=== PATIENT | male | born 1960 | race American Indian/Alaskan Native ===

== ENCOUNTER 2017-02-16 00:06 | Emergency (ER) | payer MEDICAID ==
[2017-02-16 00:07] VITALS: BMI 25.8
[2017-02-16] MEDS ORDERED: DiphenhydrAMINE 50 mg/ml Inj IM STA (00:38)
[2017-02-16] MEDS ORDERED: DiphenhydrAMINE 50 mg/ml Inj ONE (00:41)
--- NOTE | 2017-02-16 00:41 | C.PDOC ---
History Of Present Illness Patient is a 56 year old male who presents to the ER with a complaint of itchiness. Patient states he believe it is caused due to bedbugs. Denies swelling or shortness of breath. Chief Complaint (Nursing): Abnormal Skin Integrity History Per: Patient History/Exam Limitations: no limitations Onset/Duration Of Symptoms: Hrs Current Symptoms Are (Timing): Still Present Quality Of Symptoms: Itching Past Medical History Reviewed: Historical Data, Nursing Documentation, Vital Signs Vital Signs: Last Vital Signs Temp 99.7 F H 02/16/17 00:33 Pulse 78 02/16/17 00:33 Resp 18 02/16/17 00:33 BP 146/86 02/16/17 00:33 Pulse Ox 97 02/16/17 00:44 - Medical History PMH: Back Problems Surgical History: CABG Family History: States: Unknown Family Hx - Social History Hx Tobacco Use: No Hx Alcohol Use: No Hx Substance Use: No - Immunization History Hx Tetanus Toxoid Vaccination: No Hx Influenza Vaccination: No Hx Pneumococcal Vaccination: No Review Of Systems Constitutional: Negative for: Fever, Chills ENT: Negative for: Throat Swelling Skin: Positive for: Other (Itchiness) Physical Exam - Physical Exam Appears: Well, Non-toxic, No Acute Distress, Other (Complaining of itchiness) Skin: Warm, Dry, Other (Irritation to both elbows, proximal forearm, and inner thigh proximal and lateral.) Head: Atraumatic, Normacephalic Oral Mucosa: Moist Chest: Symmetrical, No Tenderness Cardiovascular: Rhythm Regular, No Murmur Respiratory: Normal Breath Sounds, No Rales, No Rhonchi, No Wheezing Gastrointestinal/Abdominal: Soft, No Tenderness Neurological/Psych: Oriented x3, Normal Speech, Normal Cognition ED Course And Treatment O2 Sat by Pulse Oximetry: 97 (Room air) Pulse Ox Interpretation: Normal Progress Note: Benadryl IM administered. Disposition - Disposition Referrals: Non [facility] Provider, [Primary Care Provider] - [facility] [Outside] Disposition: HOME/ ROUTINE Disposition Time: 23:45 Condition: STABLE Prescriptions: DiphenhydrAMINE [Benadryl] 25 mg PO Q6 #20 cap Gly/Dimeth/Petrolat,Wht/Water [Aveeno Intense Relief Cream] 207 gm TP BID #1 cream..g. Nystatin/Triamcinolone Acetoni [Mycolog II] 1 applic TOP BID #1 tube Instructions: Contact Dermatitis (ED) - POA Present On Arrival: None - Clinical Impression Clinical Impression: Skin irritation, Contact dermatitis and eczema - Scribe Statement The provider has reviewed the documentation as recorded by the Scribmeek Delgado All medical record entries made by the Scribe were at my direction and personally dictated by me. I have reviewed the chart and agree that the record accurately reflects my personal performance of the history, physical exam, medical decision making, and the department course for this patient. I have also personally directed, reviewed, and agree with the discharge instructions and disposition.
[2017-02-16 01:04] VITALS: BP 139/82; PULSE 72; RESP 16; TEMP 98.6; O2SAT 98
== END 2017-02-16 01:19 | disposition home or self-care (01) ==
LOC: SUPCPDRO 00:06 → C.ER 00:06
DX: L25.9 Unspecified contact dermatitis, unspecified cause (principal)
CPT/HCPCS: 96372; 99284; J1200

== ENCOUNTER 2017-07-05 11:19 | Emergency (ER) | payer MEDICAID ==
[2017-07-05 11:19] VITALS: BMI 25.8
--- NOTE | 2017-07-05 13:33 | C.PDOC ---
History Of Present Illness 56 y/o male presents to the ED for evaluation of chest pain and back pain which began this morning. Patient states he woke up asymptomatic, looked outside of his window to check the weather, and saw a squirrel on his fire escape. Patient threw his arms back in surprise and began developing chest and back pain. Patient only reports back pain in the ED. He denies shortness of breath, arm pain, nausea, vomiting, extremity numbness/weakness. Time Seen by Provider: 07/05/17 12:53 Chief Complaint (Nursing): Medical Clearance History Per: Patient History/Exam Limitations: no limitations Onset/Duration Of Symptoms: Hrs Current Symptoms Are (Timing): Better Additional History Per: Patient Past Medical History Reviewed: Historical Data, Nursing Documentation, Vital Signs Vital Signs: Last Vital Signs Temp 98.0 F 07/05/17 15:13 Pulse 60 07/05/17 15:13 Resp 16 07/05/17 15:13 BP 126/69 07/05/17 15:13 Pulse Ox 97 07/05/17 15:13 - Medical History PMH: Back Problems Surgical History: No Surg Hx Family History: States: Unknown Family Hx - Social History Hx Tobacco Use: No Hx Alcohol Use: No Hx Substance Use: No - Immunization History Hx Tetanus Toxoid Vaccination: No Hx Influenza Vaccination: No Hx Pneumococcal Vaccination: No Review Of Systems Cardiovascular: Negative for: Chest Pain Respiratory: Negative for: Shortness of Breath Gastrointestinal: Negative for: Nausea, Vomiting Musculoskeletal: Positive for: Back Pain. Negative for: Arm Pain Neurological: Negative for: Weakness, Numbness Physical Exam - Physical Exam Neck: Midline Cervical Tenderness Additional Physical Exam Comments: Constitutional: No acute distress. Head: Normocephalic. Atraumatic. Eyes: PERRL. EOMI ENT: Moist mucous membranes. Neck: Supple. no midline cervical tenderness Cardiovascular: Regular rate and rhythm. No murmur. Chest: No tenderness. Respiratory: Clear to auscultation bilaterally. No wheezing, rhonchi, or rales. GI: Soft. Nontender. Nondistended. Normoactive bowel sounds. Back: No CVA tenderness. Mild tenderness to bilateral mid-thoracic region on palpation. no vertebral tendernwess Musculoskeletal: No swelling of extremities. No calf tenderness. from all extremities, +2 radial pulses b/l Skin: No rash. Neurologic: A & O x 3, ms 5/5 x 4, sensation intact ED Course And Treatment ECG: Interpreted By Me, Viewed By Me ECG Rhythm: Sinus Rhythm Interpretation Of ECG: Normal Sinus Rhythm rate 80bpm. Possible left atrial enlargement. Rate From EC Medical Decision Making Medical Decision Making: Impression: 56 y/o male with back pain Plan: * Motrin PO * reassess and disposition Progress: Patient received Motrin PO. 300 pm pt asymptomatic, will d/c home. Disposition Counseled Patient/Family Regarding: Studies Performed, Diagnosis - Disposition Referrals: Khanh Olson Jr., MD [Staff Provider] - Disposition: HOME/ ROUTINE Disposition Time: 15:07 Condition: STABLE Additional Instructions: Follow up with your pmd tomorrow, Return to ER for any worse symptoms. Avoid surprising situations if possible. Instructions: Back Pain (ED) Forms: [facility] (Urdu), General Discharge Instructions - Clinical Impression Clinical Impression: Upper back pain - PA / DESIGN MAINTENANCE ENGINEER / Resident Statement MD/DO has reviewed & agrees with the documentation as recorded. - Scribe Statement The provider has reviewed the documentation as recorded by the Scribe (Elba Huynh) All medical record entries made by the Scribe were at my direction and personally dictated by me. I have reviewed the chart and agree that the record accurately reflects my personal performance of the history, physical exam, medical decision making, and the department course for this patient. I have also personally directed, reviewed, and agree with the discharge instructions and disposition.
[2017-07-05 14:02] VITALS: PULSE 60; O2SAT 97
[2017-07-05 15:13] VITALS: BP 126/69; RESP 16; TEMP 98
--- NOTE | 2017-07-08 10:24 | CARD ---
APPROVED REPORT EKG Measurement Heart [id number] <Conclusion> Normal sinus rhythm Possible Left atrial enlargement Borderline ECG
== END 2017-07-05 15:17 | disposition home or self-care (01) ==
LOC: C.ER 11:19
DX: M54.89 Other dorsalgia (principal)

== ENCOUNTER 2018-04-15 06:30 | Emergency (ER) | payer MEDICAID ==
[2018-04-15 06:31] VITALS: BMI 25.8
--- NOTE | 2018-04-15 07:38 | C.PDOC ---
History Of Present Illness 57 yo male w/o significant PMHx come in for evaluation of painful mass developed over Right groin for past few days. Pt sts, pain is localized over right groin area. Pt also request evaluation of B/L arms and B/L thighs rash, itchy developed for past few days. Otherwise, pt denies fever, chills, throat swelling or tightness, cough, CP, SOB, dyspnea, palpitation, abd. pain, N/V/D, back pain, UTI sx. Ambulate to ED for evaluation, not in any apparent distress. Time Seen by Provider: 04/15/18 07:26 Chief Complaint (Nursing): Abdominal Pain History Per: Patient Past Medical History Reviewed: Historical Data, Nursing Documentation, Vital Signs Vital Signs: Last Vital Signs Temp 98.4 F 04/15/18 07:55 Pulse 61 04/15/18 07:55 Resp 20 04/15/18 07:55 BP 116/73 04/15/18 07:55 Pulse Ox 98 04/15/18 07:55 - Medical History PMH: Back Problems Denies: Chronic Kidney Disease Surgical History: Denies: CABG Family History: States: Unknown Family Hx - Social History Hx Tobacco Use: No Hx Alcohol Use: No Hx Substance Use: No - Immunization History Hx Tetanus Toxoid Vaccination: No Hx Influenza Vaccination: No Hx Pneumococcal Vaccination: No Review Of Systems Except As Marked, All Systems Reviewed And Found Negative. Constitutional: Negative for: Fever, Chills Eyes: Negative for: Vision Change ENT: Negative for: Ear Discharge, Nose Discharge, Throat Pain, Throat Swelling Cardiovascular: Negative for: Chest Pain, Palpitations, Edema, Light Headedness Respiratory: Negative for: Cough, Shortness of Breath Gastrointestinal: Negative for: Nausea, Vomiting, Abdominal Pain, Diarrhea Genitourinary: Negative for: Dysuria, Frequency, Incontinence Musculoskeletal: Negative for: Neck Pain, Back Pain Skin: Positive for: Rash, Lesions Neurological: Negative for: Weakness, Numbness, Headache, Dizziness Physical Exam - Physical Exam Appears: Well, Non-toxic, No Acute Distress Skin: Normal Color, Warm, Dry, Rash (multiple vesicular rash to B/L inner thighs. B/L axillar area. No erythema, no flactualnce.), Other ((+) Right groin tender mass 2cm diameter, erythematous with mild middle induration. NO discahrges, no flactulance.) Head: Normacephalic Eye(s): bilateral: PERRL Nose: No Flaring, No Discharge Oral Mucosa: Moist, No Drooling Tongue: Normal Appearing, No Swelling Lips: No Swelling Throat: No Erythema, No Drooling Neck: Normal ROM, No Midline Cervical Tenderness, No Paracervical Tenderness, No Step Off Deformity, Supple Cardiovascular: Rhythm Regular, No Murmur Respiratory: No Decreased Breath Sounds, No Accessory Muscle Use, No Stridor, No Wheezing Gastrointestinal/Abdominal: Soft, No Tenderness, No Distention, No Guarding, No Rebound, No Hernia Extremity: Normal ROM, No Deformity, No Swelling Neurological/Psych: Oriented x3, Normal Speech ED Course And Treatment O2 Sat by Pulse Oximetry: 97 Pulse Ox Interpretation: Normal Progress Note: On re-evaluation, pt is afebrile, hemodynamicaly stable. NOn- toxic. Ambulatory in ED with stable gait. ENT: No acute findings. Uvula midline, no edema. Lungs: CTA B/L, BS equal B/L. CVS: (+)S1S2, reg. ABd: benign, (-) guarding, (-) rebound, (-) evidence of hernia. Back: (-) CVA tenderness. Pt has clinical findings c/w Right gorin furuncle, rash, nos. Pt advised. ref. to F/u with PMD in 2-3 days for re-eavl. return to ED if any worsening or new changes. Disposition Counseled Patient/Family Regarding: Diagnosis, Need For Followup, Rx Given - Disposition Referrals: [facility] [Outside] Disposition: HOME/ ROUTINE Disposition Time: 07:37 Condition: STABLE Additional Instructions: Take medication as prescribed Warm salty compresses to area of pain and swelling Keep skin dry, avoid tight cloth Follow up with PMD, Dermatology in 2-3 days for re-evaluation. return if any new changes. Prescriptions: DiphenhydrAMINE [Benadryl] 25 mg PO BID #14 cap Doxycycline Hyclate [Doryx] 100 mg PO BID #20 cap Instructions: Folliculitis (DC) Forms: [employer] (Hong Konger) - Clinical Impression Clinical Impression: Folliculitis
[2018-04-15 08:32] VITALS: BP 116/73; PULSE 61; RESP 20; TEMP 98.4
[2018-04-15 16:29] VITALS: O2SAT 97
== END 2018-04-15 07:55 | disposition home or self-care (01) ==
LOC: C.ER 06:30
DX: L73.9 Follicular disorder, unspecified (principal)

== ENCOUNTER 2018-04-22 15:33 | Emergency (ER) | payer MEDICAID ==
[2018-04-22 15:33] VITALS: BMI 25.8
[2018-04-22 15:51] VITALS: BP 124/77; TEMP 97.8; O2SAT 98
[2018-04-22 16:35] VITALS: PULSE 56
--- NOTE | 2018-04-22 16:35 | C.PDOC ---
History Of Present Illness 57 y/o male presents to ED with c/o reproducible chest pain for 1 day. Patient has multiple ED visits for chest pain and anxiety, denies injury, heavy lifting , sob, cough or any other complaints at this time. Time Seen by Provider: 04/22/18 16:26 Chief Complaint (Nursing): Chest Pain History Per: Patient History/Exam Limitations: no limitations Onset/Duration Of Symptoms: Days Current Symptoms Are (Timing): Still Present Past Medical History Reviewed: Historical Data, Nursing Documentation, Vital Signs Vital Signs: Last Vital Signs Temp 97.8 F 04/22/18 15:49 Pulse 56 L 04/22/18 16:15 Resp 18 04/22/18 17:26 BP 124/77 04/22/18 15:49 Pulse Ox 98 04/22/18 16:34 - Medical History PMH: Back Problems Surgical History: No Surg Hx Family History: States: No Known Family Hx - Social History Hx Tobacco Use: No Hx Alcohol Use: No Hx Substance Use: No - Immunization History Hx Tetanus Toxoid Vaccination: No Hx Influenza Vaccination: No Hx Pneumococcal Vaccination: No Review Of Systems Constitutional: Negative for: Fever, Chills Cardiovascular: Positive for: Chest Pain Respiratory: Negative for: Cough, Shortness of Breath Gastrointestinal: Negative for: Nausea, Vomiting Skin: Negative for: Rash Physical Exam - Physical Exam Appears: Non-toxic, No Acute Distress Skin: Warm, Dry, No Rash Head: Atraumatic, Normacephalic Eye(s): bilateral: Normal Inspection Oral Mucosa: Moist Neck: Normal ROM, Supple Chest: Tenderness (Right upper chest wall) Cardiovascular: Rhythm Regular Respiratory: Normal Breath Sounds, No Rales, No Rhonchi, No Wheezing Gastrointestinal/Abdominal: Soft, No Tenderness, No Guarding, No Rebound Neurological/Psych: Oriented x3, Normal Speech, Normal Cognition ED Course And Treatment ECG: Interpreted By Me ECG Rhythm: Sinus Rhythm ECG Interpretation: Normal Rate From EC (bpm) O2 Sat by Pulse Oximetry: 98 (ra) Pulse Ox Interpretation: Normal Medical Decision Making Medical Decision Making: R upper chest discomfort intercostal spaces positionally an digitally reproducable, normal EKG c/w costochondritis. Disposition Doctor Will See Patient In The: Office Counseled Patient/Family Regarding: Studies Performed, Diagnosis - Disposition Referrals: [facility] [Outside] [facility] [Outside] [facility] [Outside] Disposition: HOME/ ROUTINE Disposition Time: 16:34 Condition: GOOD Additional Instructions: continue ice packs to the R upper chest 1/2 hour per hour, nothing hot motrin/advil 400-600 mg every 6 hours as needed for pain no heavy lifting for 1 week follow-up in our outpatient Clinic as needed. Instructions: Costochondritis Forms: [employer] (Spanish) - Clinical Impression Clinical Impression: Chest wall discomfort - Scribe Statement The provider has reviewed the documentation as recorded by the Scribmeek Almodovar All medical record entries made by the Scribe were at my direction and personally dictated by me. I have reviewed the chart and agree that the record accurately reflects my personal performance of the history, physical exam, medical decision making, and the department course for this patient. I have also personally directed, reviewed, and agree with the discharge instructions and disposition.
[2018-04-22 17:28] VITALS: RESP 18
--- NOTE | 2018-04-23 23:29 | CARD ---
APPROVED REPORT EKG Measurement Heart [id number] <Conclusion> Sinus bradycardia Cannot rule out Anterior infarct, age undetermined Abnormal ECG
== END 2018-04-22 17:28 | disposition home or self-care (01) ==
LOC: C.ER 15:33
DX: R07.89 Other chest pain (principal)

== ENCOUNTER 2018-06-12 05:33 | Emergency (ER) | payer MEDICAID ==
[2018-06-12 05:33] VITALS: BMI 25.8
[2018-06-12 05:47] VITALS: RESP 20
[2018-06-12] MEDS ORDERED: Lidocaine 5% Patch TD STA (06:00)
--- NOTE | 2018-06-12 06:01 | C.PDOC ---
History Of Present Illness 57yo male, comes to ER complaining of lower back pain. He states on 05/30 he was doing some heavy lifting, after which he had the back pain. He states the pain was improving however, he did some work in his backyard yesterday which involved heavy lifting and exacerbated the pain. Patient reports taking Motrin for pain with some relief. Otherwise, denies any trauma, injuries, weakness or numbness, bowel/bladder dysfunction. Time Seen by Provider: 06/12/18 05:56 Chief Complaint (Nursing): Back Pain History Per: Patient History/Exam Limitations: no limitations Onset/Duration Of Symptoms: Worse Since (yesterday) Current Symptoms Are (Timing): Still Present Quality Of Discomfort: "Pain" Associated Symptoms: denies: Incontinence, New Weakness, New Numbness Exacerbating Factor(s): Movement Additional History Per: Patient Past Medical History Reviewed: Historical Data, Nursing Documentation, Vital Signs Vital Signs: Last Vital Signs Temp 97.9 F 06/12/18 05:42 Pulse 55 L 06/12/18 05:42 Resp 20 06/12/18 05:42 BP 157/84 H 06/12/18 05:42 Pulse Ox 98 06/12/18 06:18 - Medical History PMH: Back Problems Surgical History: No Surg Hx Family History: States: No Known Family Hx - Social History Hx Tobacco Use: No Hx Alcohol Use: No Hx Substance Use: No - Immunization History Hx Tetanus Toxoid Vaccination: No Hx Influenza Vaccination: No Hx Pneumococcal Vaccination: No Review Of Systems Except As Marked, All Systems Reviewed And Found Negative. Genitourinary: Negative for: Incontinence Musculoskeletal: Positive for: Back Pain Neurological: Negative for: Weakness, Numbness Physical Exam - Physical Exam Appears: Non-toxic, No Acute Distress Skin: Normal Color, Warm, Dry Head: Atraumatic, Normacephalic Eye(s): bilateral: Normal Inspection, EOMI Neck: Supple Chest: Symmetrical Cardiovascular: Rhythm Regular Respiratory: Normal Breath Sounds Back: No CVA Tenderness, No Vertebral Tenderness, Paraspinal Tenderness ( bilateral para-lumbar tenderness) Extremity: Normal ROM, No Pedal Edema Neurological/Psych: Oriented x3 ED Course And Treatment O2 Sat by Pulse Oximetry: 98 (RA) Pulse Ox Interpretation: Normal Medical Decision Making Medical Decision Making: Impression: Back pain, likely musculoskeletal Plan: * Valium 5mg PO * Toradol 60mg IM * Lidoderm patch On re-examination, patient is resting comfortably in no acute distress. Patient reports improvement of symptoms. Patient feels comfortable going home and will be discharged. Disposition Counseled Patient/Family Regarding: Diagnosis, Need For Followup, Rx Given - Disposition Referrals: [facility] [place] [Outside] [facility] [Outside] Disposition: HOME/ ROUTINE Disposition Time: 06:33 Condition: STABLE Additional Instructions: Apply heat to area for 15-20 minutes at a time 2-3 times per day Take Motrin for pain every 6-8 hours as needed, with food to not upset stomach Take Flexeril for muscle pain and spasm every 6-8 hours as needed, caution can cause drowsiness Take Tramadol for severe pain, be cautious not to drink or combine with Flexeril ; space out the medications Follow up with your primary medical doctor or clinic in 2-5 days for further evaluation Return to the emergency department at any time if symptoms persist or worsen. Prescriptions: Cyclobenzaprine [Cyclobenzaprine HCl] 10 mg PO TID #30 tab Ibuprofen [Motrin] 600 mg PO Q8 #30 tab traMADol [Ultram] 50 mg PO Q8 #20 tab Instructions: Lumbar Muscle Strain (DC) Forms: [facility] [facility] (Spanish) - POA Present On Arrival: None - Clinical Impression Clinical Impression: Low back strain - PA / MEND WORKER / Resident Statement MD/DO has reviewed & agrees with the documentation as recorded. - Scribe Statement The provider has reviewed the documentation as recorded by the Samy Dickerson Provider Attestation: All medical record entries made by the Samy were at my direction and personally dictated by me. I have reviewed the chart and agree that the record accurately reflects my personal performance of the history, physical exam, medical decision making, and the department course for this patient. I have also personally directed, reviewed, and agree with the discharge instructions and disposition.
[2018-06-12] MEDS ORDERED: Lidocaine 5% Patch TD ONE (06:09)
[2018-06-12 06:44] VITALS: BP 132/71; PULSE 82; TEMP 97.5; O2SAT 99
== END 2018-06-12 06:44 | disposition home or self-care (01) ==
LOC: C.ER 05:33
DX: S39.012A Strain of muscle, fascia and tendon of lower back, initial encounter (principal); X50.9XXA Other and unspecified overexertion or strenuous movements or postures, initial encounter
CPT/HCPCS: 96372; 99284; J1885

== ENCOUNTER 2018-10-12 03:01 | Emergency (ER) | payer MEDICAID ==
[2018-10-12 03:02] VITALS: BMI 25.8
[2018-10-12] MEDS ORDERED: Aspirin 325 mg EC Tablets PO STA (04:11)
[2018-10-12] MEDS ORDERED: Aspirin 325 mg EC Tablets PO ONE (04:28)
[2018-10-12 04:37] LABS: BASO # 0.2 K/uL (0.0-0.2); BASO % 2.1 % (0.0-2.0); EOS # 0.6 K/uL (0.0-0.7); EOS % 6.7 % (0.0-4.0); HEMOGLOBIN 15.3 g/dL (12.0-18.0); LYMPH # 1.2 K/uL (1.0-4.3); LYMPH % 12.5 % (20.0-40.0); MEAN CELL VOLUME 88.3 fL (80.0-94.0); MEAN CORPUSCULAR HEMOGLOBIN 29.7 pg (27.0-31.0); MEAN CORPUSCULAR HGB CONC 33.7 g/dL (33.0-37.0); MEAN PLATELET VOLUME 7.3 fL (7.2-11.7); NEUT # 6.6 K/uL (1.8-7.0); NEUT % 68.7 % (50.0-75.0); RBC 5.14 Mil/uL (4.40-5.90); RED CELL DISTRIBUTION WIDTH 13.6 % (11.5-14.5); WHITE BLOOD COUNT 9.6 K/uL (4.8-10.8)
[2018-10-12 04:49] LABS: ALB/GLOB RATIO 1.4 (1.0-2.1); ALBUMIN 4.8 g/dL (3.5-5.0); ALT/SGPT 43 U/L (21-72); AST/SGOT 29 U/L (17-59); BLOOD UREA NITROGEN 13 mg/dL (9-20); CALCIUM 9.6 mg/dl (8.6-10.4); GFR NON-AFRICAN AMERICAN > 60
[2018-10-12 05:45] LABS: URINE BILIRUBIN NEGATIVE (NEGATIVE); URINE BLOOD 1+ (NEGATIVE); URINE CLARITY Clear (Clear); URINE COLOR Straw (YELLOW); URINE GLUCOSE (UA) NORMAL (Normal); URINE LEUKOCYTE ESTERASE NEG Leu/uL (Negative); URINE PROTEIN NEGATIVE (NEGATIVE); URINE UROBILINOGEN NORMAL mg/dL (0.2-1.0)
--- NOTE | 2018-10-12 06:06 | C.PDOC ---
History Of Present Illness 58 y/o male c/o intermittent left sided chest pain for 2 days, with associated painful bump in left axilla and occasional sob when pain worse. pt also c/o swelling and tenderness to right scrotal area with mass that he states it is there for one day. pt sts he has had these bumps once before and was given medicine for them. Time Seen by Provider: 10/12/18 03:25 Chief Complaint (Nursing): Chest Pain History/Exam Limitations: no limitations Onset/Duration Of Symptoms: Days (2), Intermittent Episodes Current Symptoms Are (Timing): Gone Severity: Mild Past Medical History Reviewed: Historical Data, Nursing Documentation, Vital Signs Vital Signs: Last Vital Signs Temp 98.3 F 10/12/18 04:08 Pulse 68 10/12/18 04:30 Resp 18 10/12/18 04:30 BP 109/79 10/12/18 04:30 Pulse Ox 97 10/12/18 04:30 - Medical History PMH: Back Problems Denies: Chronic Kidney Disease Surgical History: Denies: CABG Family History: States: Unknown Family Hx - Social History Hx Tobacco Use: No Hx Alcohol Use: No Hx Substance Use: No - Immunization History Hx Tetanus Toxoid Vaccination: No Hx Influenza Vaccination: No Hx Pneumococcal Vaccination: No Review Of Systems Constitutional: Negative for: Fever Eyes: Negative for: Pain Cardiovascular: Positive for: Chest Pain, Other (axillary pain due to mass) Respiratory: Negative for: Cough Gastrointestinal: Negative for: Nausea, Vomiting, Abdominal Pain Genitourinary: Positive for: Scrotal Pain (3 cm hard mass in right sided scrotal skin) Neurological: Negative for: Weakness, Numbness Physical Exam - Physical Exam Appears: Non-toxic, No Acute Distress Skin: Warm, Dry Head: Atraumatic, Normacephalic Eye(s): bilateral: Normal Inspection Neck: Supple Chest: No Deformity, No Tenderness, Other (1-2 cm round discrete well circumscribed mass in left lower axilla, not fluctuant, exquisitely tender. ) Cardiovascular: Rhythm Regular, No Murmur Respiratory: No Decreased Breath Sounds, No Wheezing Gastrointestinal/Abdominal: Soft, No Tenderness, No Distention, No Guarding, No Rebound Male Genital: No Testicular Tenderness, No Testicular Swelling, Scrotal Swelling (scrotal skin with mass tender not fluctuant right side, testes not tender. ), Circumcised Neurological/Psych: Oriented x3, Normal Speech, Normal Cognition, Normal Motor, Normal Sensation ED Course And Treatment - Laboratory Results Result Diagrams: 10/12/18 04:32 10/12/18 04:32 O2 Sat by Pulse Oximetry: 97 Medical Decision Making Medical Decision Making: pt with left side cp, intermittent. associated with tender mass in axilla, appear to be early abscess, not fluctuant\ for last 1-2 days. also with 3cm tender mass in right scrotal area. will get labs, ultrasound of scrotum, tx with cloindaymcin. ekg reviewed, no change from last time. cxr appears unchanged. chest pain seems related to mass in axilla, not cardiac related. Disposition - Disposition Disposition Time: 07:19 Condition: STABLE Forms: [facility] (Italian) - Clinical Impression Clinical Impression: Scrotal mass, Left axillary pain Physician Patient Turnover Patient Signed Over To: Liya Farrell Handoff Comments: follow up scrotal sonogram, recommend clindamycin for early abscess and gu f/u
[2018-10-12 07:50] VITALS: RESP 16
--- NOTE | 2018-10-12 10:06 | US ---
Date of service: 10/12/2018 HISTORY: mass right scrotum TECHNIQUE: Realtime sonography through the scrotum with color and doppler flow. COMPARISON: None Available. FINDINGS: RIGHT TESTICLE: Measures 4.4 x 1.9 x 2.9 cm. Homogeneous echotexture. No mass. Normal flow demonstrated. RIGHT EPIDIDYMIS: Normal size, morphology and vascularity. No mass. LEFT TESTICLE: Measures 4.3 x 2.1 x 2.7 cm. Homogeneous echotexture. No mass. Normal flow demonstrated. LEFT EPIDIDYMIS: Normal size, morphology and vascularity.No mass. HYDROCELE: None. VARICOCELE: None. OTHER FINDINGS: In the right hemiscrotum, there is an elongated mildly echogenic structure which extend beneath the right testicle, displacing the testicle superiorly. The cephalad extent of this structure is not well visualized. The possibility of a herniation must be considered. There is no peristalsis demonstrated. This may represent herniated mesenteric fat. However, there is also some hypervascularity with a heterogeneous area of a vascularity in the midst of the hypervascularity suggestive of possible localized infection. Necrotic tumor is considered less likely. Consideration should be given to further evaluation with computed tomography of the abdomen and pelvis for evaluation of possible inguinal hernia. This should be performed with intravenous contrast administration. IMPRESSION: No evidence of testicular torsion or epididymo-orchitis. Possible right inguinal hernia of mesenteric fat. Hypervascularity with some heterogeneity in this suspected herniation may reflect localized infection. Consider further evaluation with contrast-enhanced computed tomography.
[2018-10-12 11:33] VITALS: BP 130/86; PULSE 70; TEMP 98; O2SAT 96
--- NOTE | 2018-10-12 12:37 | RAD ---
Date of service: 10/12/2018 HISTORY: chest pain COMPARISON: 11/04/2016 TECHNIQUE: Chest PA and lateral FINDINGS: LUNGS: No active pulmonary disease. PLEURA: No significant pleural effusion identified. No pneumothorax apparent. CARDIOVASCULAR: No aortic atherosclerotic calcification present. Normal cardiac size. No pulmonary vascular congestion. OSSEOUS STRUCTURES: No significant abnormalities. VISUALIZED UPPER ABDOMEN: Normal. OTHER FINDINGS: None. IMPRESSION: No active disease.
--- NOTE | 2018-10-14 20:56 | CARD ---
APPROVED REPORT Date of service: 10/12/2018 EKG Measurement Heart [id number] [id number] <Conclusion> Normal sinus rhythm Minimal voltage criteria for LVH, may be normal variant Borderline ECG
== END 2018-10-12 11:54 | disposition home or self-care (01) ==
LOC: C.ER 03:01
DX: K40.90 Unilateral inguinal hernia, without obstruction or gangrene, not specified as recurrent (principal); N50.89 Other specified disorders of the male genital organs; M79.622 Pain in left upper arm
CPT/HCPCS: 71046; 76870; 80053; 81001; 84484; 85025; 96374; 99285; J1885

== ENCOUNTER 2018-10-18 18:24 | Emergency (ER) | payer OTHER, MEDICAID ==
[2018-10-18 18:25] VITALS: BMI 25.8
[2018-10-18 18:31] VITALS: BP 124/79; PULSE 72; TEMP 98; O2SAT 98
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
[2018-10-18 21:57] VITALS: RESP 20
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
== END 2018-10-18 21:56 | disposition home or self-care (01) ==
LOC: C.ER 18:24
DX: S16.1XXA Strain of muscle, fascia and tendon at neck level, initial encounter (principal); S46.912A Strain of unspecified muscle, fascia and tendon at shoulder and upper arm level, left arm, initial encounter; S46.911A Strain of unspecified muscle, fascia and tendon at shoulder and upper arm level, right arm, initial encounter; M54.2 Cervicalgia; W18.39XA Other fall on same level, initial encounter; Y92.410 Unspecified street and highway as the place of occurrence of the external cause